=== PATIENT | male | born 1950 | race Caucasian/White ===

== ENCOUNTER 2017-05-20 16:44 | Inpatient (IN) | payer MEDICARE ==
[~2017-05-20] VITALS: Ht 180.3 cm; Wt 81.5 kg
--- NOTE | ~2017-05-20 | DS ---
PATIENT:SHOAIB MARTINEZ :52 MEDICAL RECORD: [id number] DISCHARGE SUMMARY ADMISSION DATE: 05/20/17 DISCHARGE DATE: 05/28/17 DISCHARGE DIAGNOSES: Wubpd-dj-viceyew renal insufficiency, benign prostatic hyperplasia with urinary obstruction, hypertension, osteoarthritis, symptomatic anemia, paroxysmal atrial fibrillation, anemia secondary to renal failure and chronic kidney disease, hypothyroidism, pulmonary hypertension, severe essential hypertension. CONSULTANTS: Dr. Messi Jain, surgery; Dr. Pro Paez, cardiology; and Dr. Bairon Chen for nephrology. PROCEDURES PERFORMED: Echocardiogram, insertion of a right 19-cm with internal jugular HemoSplit catheter. HOSPITAL COURSE: A 67-year-old male with history of hypertension, paroxysmal atrial fibrillation, and chronic renal insufficiency from [place], who is admitted to my services unassigned call with increasing shortness of breath and signs of congestive heart failure. He is admitted with extremely hypertensive pressure as high as 209/96. The consultants above were consulted. The patient had paroxysmal atrial fibrillation responding to verapamil. He was also placed on Epogen 10,000 units 3 times a week for his chronic anemia. The patient underwent a HemoSplit catheter placement for dialysis. 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 With dialysis, he did well and was discharged to have followup in the renal clinic on the following Wednesday. DISCHARGE MEDICATIONS: Clonidine 0.1 mg p.o. q.6 hours for systolic over 180, losartan 100 mg daily, Diltiazem LA 240 mg p.o. daily, hydralazine 30 mg p.o. t.i.d. FOLLOWUP: With Dr. Chen on 05/29/2017 and followup in my clinic in 2 weeks. ACTIVITY: Progress as tolerated. DIET: Renal diet. TRANSINT:[id number] Voice Confirmation ID: [id number] DOCUMENT ID: [id number] MARY GIBBONS MD CC: [id number] DICTATION DATE: 09/03/17 1339 FARM PRODUCTS SHIPPER: 09/03/17 1553 DIS IN 05/28/17 [place] [id number] [place] [id number]
[2017-05-20 18:08] LABS: BASOPHILS 0.2 % (0-2); EOSINOPHILS 4.2 % (0-7); HEMATOCRIT 21.1 % (42.0-54.0); LYMPHOCYTES 18.9 % (15-50); MCH 29.7 pg (26.0-34.0); MCHC 32.7 g/dL (31.0-37.0); MCV 90.9 fL (80.0-100.0); MEAN PLATELET VOLUME 8.7 fL (7.4-10.4); MONOCYTES 5.6 % (2-11); NEUTROPHILS 71.1 % (40-80); PLATELET COUNT 184 10x3/uL (130-400); RBC 2.32 10x6/uL (4.20-6.10); RDW 14.3 % (11.5-14.5); WBC 6.5 10x3/uL (4.8-10.8)
[2017-05-20 18:20] LABS: ALBUMIN 3.3 g/dL (3.4-5.0); ANION GAP 14.8 mmol/L (8-16); BILIRUBIN - TOTAL 0.32 mg/dL (0.2-1.3); CALCIUM 8.5 mg/dL (8.5-10.1); CARBON DIOXIDE 28.8 mmol/L (21.0-32.0); POTASSIUM - SERUM 4.6 mmol/L (3.5-5.1); PROTEIN - SERUM 7.3 g/dL (6.4-8.2)
[2017-05-20 18:28] LABS: TROPONIN-I 0.035 ng/mL (0.000-0.060)
[2017-05-20 18:38] LABS: HEMOGLOBIN 6.9 g/dL (13.5-17.5)
[2017-05-20 20:41] LABS: APPEARANCE CLEAR (CLEAR); COLOR YELLOW (YELLOW); SPECIFIC GRAVITY 1.005 (1.005-1.020)
[2017-05-20 20:42] LABS: BILIRUBIN NEGATIVE (NEGATIVE); GLUCOSE 50 mg/dL (NEGATIVE); KETONE NEGATIVE (NEGATIVE); NITRITE NEGATIVE (NEGATIVE); PROTEIN 2+ mg/dL (NEGATIVE); UROBILINOGEN NORMAL (NORMAL)
[2017-05-20 20:43] LABS: BACTERIA FEW /hpf (NONE SEEN); RED CELLS - URINE OCC /hpf (0-5); WHITE CELLS - URINE 0-5 /hpf (0-5)
[2017-05-20] MEDS ORDERED: CALAN SR240 MG PO (23:51)
[2017-05-21] VITALS (8 sets, daily range): BP systolic 165–192; BP diastolic 82–101; Ht 180.3 cm; Wt 81.5 kg
--- NOTE | 2017-05-21 00:19 | NUR ---
PT RECEIVED AWAKE, ALERT, ORIENTED, IN NO ACUTE DISTRESS AT THIS TIME. FAMILY AT BEDSIDE. I HAVE EXPLAINED THE MEDICATIONS AND PHYSICIANS ORDERS TO PT AND FAMILY, NO QUESTIONS ASKED. PT TO CALL WITH ANY NEEDS. BED LOW, CALL LIGHT IN REACH, SIDE RAILS X 2, HOB 35 DEGREES.
[2017-05-21 00:43] LABS: % SATURATION 19 % (15-55); IRON 56 ug/dl (35-150); TOTAL IRON BIND CAPACITY 294 ug/dl (260-445); UNSAT IRON BIND CAPACITY 238 ug/dl (150-375)
[2017-05-21 00:59] LABS: FERRITIN 275 ng/mL (3-244); LDH 243 U/L (85-227)
--- NOTE | 2017-05-21 02:49 | NUR ---
PTS 1 UNIT OF PRBC'S HAS BEEN STARTED. V/S STABLE AT THIS TIME. PT REMAINS AWAKE, ALERT, ORIENTED, HAS C/O INCREASED SOB WHILE AT REST. O2 SAT WHEN CHECKED IS BETWEEN 89% AND 91%. I HAVE ADDED O2 VIA NC @ 2LPM FOR PTS COMFORT AT THIS TIME. BLOOD CONSENT WAS SIGNED @ 02:13 A.M. EDUCATION ABOUT PRBC'S PROVIDED TO PT, ALONG WITH S/S FOR PT TO REPORT IMMEDIATELY. PT HAS VERBALLY AGREED TO UNDERSTANDING THESE INSTRUCTIONS. WILL CONTINUE TO MONITOR PT CLOSELY.
--- NOTE | 2017-05-21 03:11 | NUR ---
PT IS TOLERATING THE PRBC'S WELL AT THIS TIME. PTS O2 SAT HAS REMAINED @ 97% SINCE STARTING O2 VIA NC @ 2LPM. PTS V/S REMAIN STABLE. I HAVE INCREASED THE TRANSFUSION FROM 120MLS/HR TO 125MLS/HR AND WILL CONTINUE TO MONITOR PT CLOSELY.
--- NOTE | 2017-05-21 05:43 | NUR ---
1 UNIT PRBC'S NOW COMPLETE. PTS V/S REMAIN STABLE, O2 93% ON 2 LPM. PT IS RESTING COMFORTABLY, DENIES ANY NEEDS AT THIS TIME. CONTINUE TO MONITOR CLOSELY.
[2017-05-21 06:42] LABS: BASOPHILS 0.2 % (0-2); EOSINOPHILS 5.1 % (0-7); HEMATOCRIT 23.2 % (42.0-54.0); HEMOGLOBIN 7.8 g/dL (13.5-17.5); IMMATURE GRANULOCYTES 0.2 % (0-5); LYMPHOCYTES 20.4 % (15-50); MCH 30.7 pg (26.0-34.0); MCHC 33.6 g/dL (31.0-37.0); MCV 91.3 fL (80.0-100.0); MEAN PLATELET VOLUME 9.3 fL (7.4-10.4); MONOCYTES 6.3 % (2-11); NEUTROPHILS 67.8 % (40-80); PLATELET COUNT 184 10x3/uL (130-400); RBC 2.54 10x6/uL (4.20-6.10); RDW 14.2 % (11.5-14.5); WBC 6.2 10x3/uL (4.8-10.8)
[2017-05-21 06:54] LABS: CALCIUM 8.6 mg/dL (8.5-10.1); CARBON DIOXIDE 25.8 mmol/L (21.0-32.0); CREATININE - SERUM 11.9 mg/dL (0.6-1.3); POTASSIUM - SERUM 4.8 mmol/L (3.5-5.1)
--- NOTE | 2017-05-21 07:25 | NUR ---
AM ROUNDING DONE WITH PATIENT RESTING EASILY, AROUSES WHEN AWOKEN. DENIES NEEDS AT PRESENT TIME. LEFT HAND SEEN WITH BUMEX INFUSING AT 5 CC/HR, RIGHT FA WITH SALINE LOCK. ON 2L PER NC. ON HEART MONITOR SHOWING SR, HR 78. BILTERAL PITTING EDEMA SEEN TO LOWER LEGS. NEEDING STOOL SAMPLE. WILL CONTINUE TO MONITOR.
--- NOTE | 2017-05-21 08:24 | NUR ---
PATIENT IS UP AD SATINDER, DOES NOT WANT TO WEAR SCD'S.
--- NOTE | 2017-05-21 09:42 | NUR ---
0940-YEH CATH PLACED WITH RETURN OF 300 CC CLEAR YELLOW URINE.
--- NOTE | 2017-05-21 10:39 | NUR ---
URINE SENT TO LAB ORDERED.
[2017-05-21 10:51] LABS: CREATININE - URINE 30.4 mg/dL (30-125); PRO/CRE RATIO URINE 4.7 mg/g; PROTEIN - URINE 143.8 mg/dL (0.0-11.9)
--- NOTE | 2017-05-21 12:00 | HP ---
PATIENT: VAMSI MARTINEZ MEDICAL RECORD: [id number] ACCOUNT: [id number] LOCATION:[address] : [birth year] ADMISSION DATE: 05/20/17 HISTORY AND PHYSICAL EXAMINATION REASON FOR ADMISSION: Extreme shortness of breath and fatigue. HISTORY OF PRESENT ILLNESS: The patient is a 67-year-old male with history of essential hypertension. He states over the last several months, he has been more fatigued. Over the last 2-3 days, he has had increased shortness of breath on exertion. He said the last 2 nights he had to sit up to breathe in bed. He denies cough or sputum production or chest pain. He came to the Emergency Room for these reasons and was found to be very anemic, hemoglobin of 6.9 and a creatinine of 12. He states he had hypertension since age 21, but when became Medicare aid he lost his physician in [place]. He was told once his creatinine was mildly elevated. He had surgery last in June of 2013 and he was told that he had mild creatinine elevation, but nephrology was not consulted. There is no family history of renal disease. PAST MEDICAL HISTORY: Essential hypertension for 40+ years, degenerative joint disease, BPH, history of melanoma in left shoulder. PAST SURGICAL HISTORY: He has had bilateral knee replacements, last January of 2013. He has had 7 hernia repairs, 5 ventral hernia and 2 inguinal hernia repairs. 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 Melanoma removed from his left shoulder. FAMILY HISTORY: Father of CHF and pneumonia. Mother had cancer of the lung. Brother with cancer of the esophagus. ALLERGIES: SULFA. MEDICATIONS: Verapamil 240 b.i.d. SOCIAL HISTORY: The patient is . He is retired. He smoked [id number] history, he quit 40 years ago. He has not had alcohol in 40 years as well. 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 REVIEW OF SYSTEMS: GENERAL: Fatigue, without fever or weight change. HEENT: No recent visual change, sinus congestion, or sore throat. He wears glasses to read. RESPIRATORY: Exertional dyspnea, with no cough or sputum production. CARDIAC: Exertional shortness of breath. No chest pain or claudication. GASTROINTESTINAL: No nausea, vomiting, change in stools, or blood per rectum. GENITOURINARY: He has marked symptoms of urinary obstruction with slow urinary stream. Nocturia 4-5 times nightly. ENDOCRINE: Denies polyuria, polydipsia, heat or cold intolerance. NEUROLOGIC: No history of stroke, TIA, vascular headaches, or seizures. INTEGUMENT: No rash or itching. PSYCHIATRIC: Denies depressed mood. PHYSICAL EXAMINATION: HISTORY AND PHYSICAL [id number] VAMSI MARTINEZ VITAL SIGNS: Temperature 97.7 Fahrenheit orally, pulse 88, respirations 16, blood pressure 187/87, sat 99% on room air. GENERAL: The patient is alert and oriented. HEENT: Eyes are clear. Palpebral conjunctiva is pale. Oropharynx unremarkable. NECK: No bruits or masses. CHEST: Clear, without wheeze or rales. HEART: Regular rate without MGR. PMI appropriate. ABDOMEN: Soft, nontender. Healed surgical scars are noted. GENITOURINARY: Shows marked enlargement of his prostate. The right lobe is somewhat firm and irregular versus the left. No stool in the vault. EXTREMITIES: No CC&E. He has scars over both knees from prior replacement. NEUROLOGICAL: Oriented to person, place, and time. Cranial nerves intact. Gait is normal. ASSESSMENT: 1. Mguvo-xy-iuopbve renal insufficiency. 2. BPH with possible urinary obstruction. 3. Hypertension, uncontrolled. 4. Osteoarthritis. 5. Benign prostatic hypertrophy. 6. History of melanoma. 7. Symptomatic anemia. PLAN: The patient will be transfused. We will place Fernandes catheter and check postvoid residual. Renal has been consulted. TRANSINT:[id number] Voice Confirmation ID: [id number] DOCUMENT ID: [id number] MARY GIBBONS MD at 1200 CC: [id number] DICTATION DATE: 05/21/17802 SALES EXEC: 05/21/17914 [facility] [place] [id number] [place] [address]
--- NOTE | 2017-05-21 12:06 | NUR ---
DENIES NEEDS AT PRESENT TIME. HAS BEEN RESTING WELL SINCE YEH CATH WAS PLACED. WILL CONTINUE TO MONITOR.
--- NOTE | 2017-05-21 12:25 | NUR ---
IV CONVERTED TO SALINE LOCK ORDERED.
--- NOTE | 2017-05-21 13:59 | NUR ---
PATIENT TO COMPLAIN OF "SLIGHT CHEST TIGHTNESS", NO CHEST PAIN. I CHECKED WITH TELEMENTRY AND THERE HAS BEEN NO CHANGES IN HEART MONITOR. I ASKED THAT HE CALL ME WITH ANY CHEST PAIN.
--- NOTE | 2017-05-21 16:28 | NUR ---
FAMILY MEMBERS AT BEDSIDE, DENIES ANY NEEDS AT THIS TIME. EDEMA TO BILATERAL LEGS ARE BETTER THAN AT INITAL SHIFT ASSESSMENT. WILL CONTINUE TO FOLLOW.
--- NOTE | 2017-05-21 18:46 | NUR ---
STOOL SENT TO LAB ORDERED.
--- NOTE | 2017-05-21 19:32 | NUR ---
BLOOD PRESSURE 165/82. APRESOLINE 10 MG GIVEN SLOW IVP
--- NOTE | 2017-05-21 23:25 | NUR ---
BLOOD PRESSURE IS 192/92. APRESOLINE 10 MG GIVEN ORDERED.
--- NOTE | 2017-05-21 23:45 | NUR ---
REPORT RECIEVED AND RESUMED CARE OF PATIENT. CHECKED IN ON HIM AND HE WAS SITTING UP IN BED WATCHING TV. INTRIDUCED SELF AND DENIES PAIN/NEEDS ATT. BED LOW AND LOCKED, CALL LIGHT IN REACH. WILL CPOC.
[2017-05-22] VITALS: BP 166/67
[2017-05-22 04:00] VITALS: BP 177/79
[2017-05-22 05:59] LABS: BASOPHILS 0.5 % (0-2); EOSINOPHILS 10.9 % (0-7); HEMATOCRIT 23.9 % (42.0-54.0); IMMATURE GRANULOCYTES 0.2 % (0-5); LYMPHOCYTES 23.6 % (15-50); MCH 30.8 pg (26.0-34.0); MCHC 33.5 g/dL (31.0-37.0); MCV 91.9 fL (80.0-100.0); MONOCYTES 7.9 % (2-11); NEUTROPHILS 56.9 % (40-80); PLATELET COUNT 215 10x3/uL (130-400); RDW 14.4 % (11.5-14.5); WBC 6.5 10x3/uL (4.8-10.8)
[2017-05-22 06:12] LABS: ANION GAP 17.4 mmol/L (8-16); CALCIUM 8.4 mg/dL (8.5-10.1); CARBON DIOXIDE 23.6 mmol/L (21.0-32.0); CREATININE - SERUM 11.9 mg/dL (0.6-1.3); PHOSPHOROUS 8.3 mg/dL (2.5-4.9); URIC ACID 8.8 mg/dL (2.6-7.2)
[2017-05-22 07:07] LABS: ERYTHROCYTE SEDIMENTATION RATE 75 mm/hr (0-20)
[2017-05-22 07:21] LABS: FOLATE (FOLIC ACID) - SERUM 6.6 ng/mL (>3.0)
--- NOTE | 2017-05-22 07:30 | NUR ---
AM ROUNDS- PT IN BED, WITH EYES CLOSED, AROUSES EASILY TO VOICE. RESP EVEN AND UNLABORED. RT FA IV SL. LT HAND IV SL. BED LOW AND WHEELS LOCKED, BEDSIDE RAILS X2, CALL LIGHT IN REACH, PT DENIES ANY NEEDS AT THIS TIME. NAD NOTED, WILL CONTINUE TO MONITOR.
--- NOTE | 2017-05-22 08:30 | NUR ---
ADMINISTERED MORNING MEDS. PT IN BED, WATCHING TV. DENIES ANY NEEDS AT THIS TIME. CALL LIGHT IN REACH, WILL CONTINUE TO MONITOR.
[2017-05-22 08:39] VITALS: BP 173/86
[2017-05-22 12:00] VITALS: BP 157/95
--- NOTE | 2017-05-22 12:00 | NUR ---
NOTIFIED DR. PARK THAT PT WENT INTO CAF WITH RATE OF 73. DR. PARK STATED TO CONSULT CARDIOLOGY AND NOTIFY ATTENDING DOCTOR. 1205- SPOKE WITH DR. MULLER AND NOTIFIED HIM THAT PT WENT INTO CAF AND THAT DR. PARK STATED TO CONSULT CARDIOLOGY. WILL PUT IN CONSULT.
--- NOTE | 2017-05-22 12:47 | NUR ---
1230- 24HR URINE COLLECTION STARTED. CONTAINER PLACED IN ICE, ALSO PLACED YEH BAG IN ICE. PT IN BED, DENIES ANY NEEDS AT THIS TIME. CALL LIGHT IN REACH, NAD NOTED, WILL CONTINUE TO MONITOR.
[2017-05-22 12:54] LABS: % SATURATION 22 % (15-55); IRON 57 ug/dl (35-150); TOTAL IRON BIND CAPACITY 259 ug/dl (260-445); UNSAT IRON BIND CAPACITY 202 ug/dl (150-375)
[2017-05-22 16:00] VITALS: BP 119/69
--- NOTE | 2017-05-22 17:27 | NUR ---
PT GOING FROM SB UPPER 40S TO LOWER 50S. AT THIS TIME PT IS CAF 76. ROLY ERNST NOTIFIED ABOUT CHANGES NO NEW ORDERS RECEIVED AT THIS TIME.
--- NOTE | 2017-05-22 17:43 | NUR ---
PT C/O SOB, PT STATED THAT HE FEELS LIKE HE HAS TO TAKE EXTRA DEEP BREATHS. HE DENIES ANY CHEST PAIN. O2 AT 96% ON 2L. NEW ICE PLACE ON BASIN AND PLACED COLLECTION CONTAINER AND YEH BAG IN BASIN. PT DENIES ANY NEEDS AT THIS TIME. FAMILY AT BEDSIDE, CALL LIGHT IN REACH, NAD NOTED, WILL CONTINUE TO MONITOR.
[2017-05-22 20:00] VITALS: BP 121/78
--- NOTE | 2017-05-22 20:04 | NUR ---
RECEIVED REPORT, WILL ASSUME CARE OF PT, DENIES ANY NEEDS, BED IS LOW, SRX2, CALL LIGHT IN REACH, WILL CONTINUE PLAN OF CARE, AT BEDSIDE
--- NOTE | 2017-05-22 21:11 | NUR ---
[facility]- BP-121/78, P-48, WILL CONTINUE TO MONITOR
[2017-05-23] VITALS: BP 135/79
[2017-05-23 04:00] VITALS: BP 157/84
--- NOTE | 2017-05-23 04:53 | NUR ---
ASSESSMENT COMPLETE, SEE FLOWSHEET, PT SLEEPING, BED IS LOW, SRX2, CALL LIGHT IN REACH, WILL CONTINUE PLAN OF CARE
[2017-05-23 06:07] LABS: THYROID STIMULATING HORMONE 10.99 uIU/mL (0.36-3.74)
--- NOTE | 2017-05-23 07:15 | NUR ---
REPORT RECEIVED. PT RESTING QUIETLY, RR EVEN AND UNLABORED. PT REPORTS FEELING "MUCH BETTER" THIS MORNING. WILL CTM.
[2017-05-23 08:00] VITALS: BP 164/83
[2017-05-23 10:22] LABS: T4 THYROXIN - FREE 1.07 ng/dL (0.76-1.46)
[2017-05-23 10:23] LABS: ANION GAP 21.5 mmol/L (8-16); CALCIUM 8.5 mg/dL (8.5-10.1); CARBON DIOXIDE 21.4 mmol/L (21.0-32.0); CREATININE - SERUM 12.3 mg/dL (0.6-1.3); POTASSIUM - SERUM 4.9 mmol/L (3.5-5.1)
[2017-05-23 10:35] LABS: INR 1.03 (0.85-1.17); PROTIME 13.4 SECONDS (11.6-15.0)
[2017-05-23 12:00] VITALS: BP 157/79
--- NOTE | 2017-05-23 14:15 | NUR ---
1ST PRBC TRANSFUSION INITIATED. PRE TRANSFUSION VITALS STABLE, RR EVEN AND UNLABORED. STARTED PRBCS AT 100MLS/HR, WILL INCREASE 15 MINUTES AFTER INITIATION TO ENSURE NO TRANSFUSION REACTION. PT ON FREQUENT VS, WILL STAY WITH PT UNTIL FIRST 15 MINUTES IS COMPLETE. PT DENIES NEEDS. EDUCATED PT ON S/S TO REPORT OF TRANSFUSION REACTION. FAMILY AT [facility], BOTH PT AND FAMILY VERBALIZED UNDERSTANDING. WILL CTM.
[2017-05-23 14:23] LABS: CREATININE - URINE 41.4 mg/dL (30-125); PROTEIN - URINE 119.8 mg/dL (0.0-11.9)
--- NOTE | 2017-05-23 14:30 | NUR ---
15 MINUTES POST TRANSFUSION, VSS, RR EVEN AND UNLABORED. PT DENIES ANY DISCOMFORT. BP HAS ELEVATED TO 172/78. GAVE PRN HYDRALIZINE, WILL CTM PTS VS.
[2017-05-23 14:33] LABS: CREATININE - SERUM 12.3 mg/dL (0.6-1.3)
[2017-05-23 16:00] VITALS: BP 171/81
--- NOTE | 2017-05-23 16:30 | NUR ---
FIRST UNIT OF BLOOD COMPLETE. RR EVEN AND UNLABORED. VSS, BLOOD PRESSURE STILL ELEVATED TO 176/86. PT REPORTS SLIGHT SOB, BUT REPORTS FEELING "FINE." PAGED ROLY ERNST RENAL POLICE STENOGRAPHER. WILL CTM.
--- NOTE | 2017-05-23 16:42 | NUR ---
SPOKE TO ROLY ERNST REGARDING PT CONDTION. GAVE TELEPHONE ORDER FOR CLONIDINE 0.2MG ONE TIME. GAVE ORDER TO HOLD 2ND UNIT OF BLOOD UNTIL BP DROPS BELOW 160 SYSTOLIC. TOLD ME TO NOTIFY HER IF PTS PRESSURE DOES NOT DECREASE. WILL GIVE CLONIDINE AND CTM.
--- NOTE | 2017-05-23 18:30 | NUR ---
PT RESTING QUIETLY, RR EVEN AND UNLABORED. PT DENIES NEEDS AT THIS TIME. ROLY ERNST RETURNED PAGE, GAVE TELEPHONE ORDER FOR ONE TIME IV LASIX 40MG. GAVE ORDER TO START 2ND TRANSFUSION. WILL GIVE REPORT ON PT CONDTION FOR THE DAY.
--- NOTE | 2017-05-23 19:30 | NUR ---
PRBC TRANSFUSION STARTED AFTER VERIFIED PT IDENTIFICATION AT THE BEDSIDE. CHECKED WITH NURSES X2, WILL MONITOR PER PROTOCOL FOR S/S OF ADVERSE REACTIONS.
--- NOTE | 2017-05-23 19:37 | NUR ---
RECEIVED REPORT, WILL ASSUME CARE OF PT, VENUS MONIQUE STARTED 2ND UNIT OF PRBC, PT DENIES ANY NEEDS, CALL LIGHT IN REACH, WILL CONTINUE PLAN OF CARE
[2017-05-23 20:00] VITALS: BP 165/81
[2017-05-24] VITALS (12 sets, daily range): BP systolic 144–192; BP diastolic 65–92
--- NOTE | 2017-05-24 01:36 | NUR ---
BP-181/80 GAVE PRN HYDRALAZINE ORDER
--- NOTE | 2017-05-24 05:13 | NUR ---
ASSESSMENT COMPLETE, PT IS GOING TO WIPE DOWN WITH HIBICLENS WIPES WHEN GET HERE,PT DIDNT SLEEP WELL LASTNIGHT, BUT STATES HE SLEPT ALOT YESTERDAY, DENIES ANY NEEDS AT THIS TIME, CALL LIGHT IN REACH
[2017-05-24 06:12] LABS: BASOPHILS 0.4 % (0-2); EOSINOPHILS 9.8 % (0-7); IMMATURE GRANULOCYTES 0.1 % (0-5); LYMPHOCYTES 19.8 % (15-50); MCH 30.4 pg (26.0-34.0); MCHC 33.4 g/dL (31.0-37.0); MCV 90.8 fL (80.0-100.0); MEAN PLATELET VOLUME 10.2 fL (7.4-10.4); MONOCYTES 6.6 % (2-11); NEUTROPHILS 63.3 % (40-80); PLATELET COUNT 225 10x3/uL (130-400); RDW 14.5 % (11.5-14.5); WBC 7.3 10x3/uL (4.8-10.8)
[2017-05-24 06:26] LABS: INR 1.03 (0.85-1.17); PROTIME 13.3 SECONDS (11.6-15.0)
[2017-05-24 06:33] LABS: HEMATOCRIT 29.6 % (42.0-54.0); HEMOGLOBIN 9.9 g/dL (13.5-17.5); RBC 3.26 10x6/uL (4.20-6.10)
[2017-05-24 06:49] LABS: ANION GAP 24.2 mmol/L (8-16); CALCIUM 8.6 mg/dL (8.5-10.1); CARBON DIOXIDE 18.8 mmol/L (21.0-32.0); CREATININE - SERUM 12.1 mg/dL (0.6-1.3)
[2017-05-24 06:52] LABS: PHOSPHOROUS 9.1 mg/dL (2.5-4.9)
--- NOTE | 2017-05-24 07:18 | NUR ---
DR. PARK ON UNIT. INFORMED DR. PARK THAT PER REPORT FROM EBONIE BREAST PULLER NURSE THAT THERE IS NURSING MESSAGE THAT PT IS TO HAVE RENAL BIOPSY TODAY BUT THERE ARE NO ORDERS. DR. PARK STATES THAT HE IS WAITING ON SPECIALS. DR. PARK STATES TO CONSULT CARDIOLOGY FOR A-FIB THAT PT HAD YESTERDAY. WILL PUT ORDERS IN GIVEN.
--- NOTE | 2017-05-24 07:50 | NUR ---
0700- AM ROUNDING- RECEIVED REPORT FROM INSTRUCTIONAL TECHNOLOGY FACILITATOR NURSE EBONIE. PT IS CURRENTLY SITTING UP IN BED WITH EYES OPEN RESTING. IS AT BEDSIDE. NPO CURRENTLY FOR POSSIBLE RENAL BIOPSY TODAY. DR. PARK IS ON UNIT. ON 02 AT 2L VIA NC. ON MONITOR SHOWING SR, HR 74. IV SEEN TO RIGHT FOREARM THAT IS CURRENTLY SALINE LOCKED. SECOND IV SEEN TO LEFT HAND THAT IS CURRENLTY SALINE LOCKED. YEH CATHETER SEEN. PER REPORT PT REFUSES SCDS. NO NEED AT THIS CURRENT TIME. WILL CONTINUE TO MONITOR AND CONTINUE WITH PLAN OF CARE.
--- NOTE | 2017-05-24 08:47 | NUR ---
TO TO SPECIALS VIA BED. PT SIGNED CONSENTS FOR PROCEDURE. PT HAS BEEN NPO THIS AM.
[2017-05-24 09:08] LABS: ANA REFLEX - DIRECT Negative (Negative)
--- NOTE | 2017-05-24 09:48 | NUR ---
PT BACK FROM PROCEDURE VIA BED. PT IS AWAKE AND ALERT. DRESSING SEEN TO RIGHT MID BACK AREA THAT IS CLEAN, DRY, AND INTACT. WILL TAKE VITALS AND CONTINUE TO MONITOR.
--- NOTE | 2017-05-24 10:49 | NUR ---
LETHA DUNHAM APN REGARDING PTS BLOOD PRESSURE (184/81). WILL AWAIT CALLBACK AND CONTINUE TO MONITOR.
--- NOTE | 2017-05-24 10:52 | NUR ---
RECEIVED CALLBACK FROM KARY DUNHAM. INFORMED KARY DUNHAM OF PTS BLOOD PRESSURES BEING OVER 180 SYSTOLIC. KARY DUNHAM GAVE NEW ORDERS.
--- NOTE | 2017-05-24 16:42 | NUR ---
PT STATES HE IS IN 1/10 PAIN AFTER HAVING TYLENOL RECENTLY. PTS DRESSING TO RIGHT MID BACK AREA IS CLEAN, DRY, AND INTACT WITH NO BLEEDING SEEN. PT DENIES ANY NEED AT THIS TIME. WILL CONTINUE TO MONITOR.
--- NOTE | 2017-05-24 18:35 | NUR ---
1800- PT IS CURRENTLY SITTING UP IN BED WITH EYES OPEN RESTING. FAMILY MEMBERS ARE AT BEDSIDE. NO NEED AT THIS CURRENT TIME. WILL CONTINUE TO MONITOR AND CONTINUE WITH PLAN OF CARE.
--- NOTE | 2017-05-24 21:19 | NUR ---
HS MEDS GIVEN WITH FRESH ICE WATER, PT DENIES PAIN OR NEEDS, BED LOW, CL IN REACH.
--- NOTE | 2017-05-25 00:29 | NUR ---
IN BE RESTING WITH EYES CLOSED, RESPERATIONS EVEN, NO S/S DISTRESS NOTED.
[2017-05-25 01:44] VITALS: BP 188/82
[2017-05-25 04:40] VITALS: BP 187/77
[2017-05-25 06:00] LABS: BASOPHILS 0.3 % (0-2); EOSINOPHILS 8.4 % (0-7); HEMOGLOBIN 9.6 g/dL (13.5-17.5); IMMATURE GRANULOCYTES 0.1 % (0-5); LYMPHOCYTES 20.3 % (15-50); MCH 30.4 pg (26.0-34.0); MCHC 33.1 g/dL (31.0-37.0); MCV 91.8 fL (80.0-100.0); MEAN PLATELET VOLUME 9.9 fL (7.4-10.4); MONOCYTES 10.6 % (2-11); NEUTROPHILS 60.3 % (40-80); PLATELET COUNT 224 10x3/uL (130-400); RBC 3.16 10x6/uL (4.20-6.10); RDW 14.7 % (11.5-14.5)
[2017-05-25 06:26] LABS: ANION GAP 24.5 mmol/L (8-16); CALCIUM 8.7 mg/dL (8.5-10.1); CARBON DIOXIDE 18.2 mmol/L (21.0-32.0); CREATININE - SERUM 12.5 mg/dL (0.6-1.3); MAGNESIUM - SERUM 2.1 mg/dL (1.8-2.4); POTASSIUM - SERUM 4.7 mmol/L (3.5-5.1)
[2017-05-25 06:28] LABS: PHOSPHOROUS 9.6 mg/dL (2.5-4.9)
[2017-05-25 07:13] VITALS: BP 213/94
--- NOTE | 2017-05-25 07:23 | NUR ---
AM ROUNDING- RECEIVED REPORT FROM POT PUNCHER NURSE VARSHA. PT IS CURRENTLY SITTING UP IN BED WITH EYES OPEN RESTING. PT STATES THIS IS THE FIRST DAY HE HAS FELT BETTER SINCE BEING HERE. PT IS ON 02 AT 2L VIA NC. ON MONITOR SHOWING SR, HR 66. IV SEEN TO LEFT HAND THAT IS CURRENTLY SALINE LOCKED. YEH CATHETER SEEN. NO NEED AT THIS CURRENT TIME. WILL CONTINUE TO MONITOR AND CONTINUE WITH PLAN OF CARE.
[2017-05-25 07:24] LABS: UPE RAND - ALBUMIN 59.3 % (()); UPE RAND - ALPHA 2 GLOBULIN 8.3 % (()); UPE RAND - BETA GLOBULIN 14.4 % (())
[2017-05-25 08:19] LABS: SPE - ALBUMIN 3.1 g/dL (2.9-4.4); SPE - ALPHA-1 GLOBULIN 0.2 g/dL (0.0-0.4); SPE - ALPHA-2 GLOBULIN 0.8 g/dL (0.4-1.0); SPE - M-SPIKE Not Observed g/dL (Not Observed); SPE - TOTAL PROTEIN 6.1 g/dL (6.0-8.5)
--- NOTE | 2017-05-25 09:04 | NUR ---
YEH CATHETER D/C ORDERED.
--- NOTE | 2017-05-25 09:42 | NUR ---
RECEIVED CALLBACK FROM ELLA PHOENIX NP WITH NEW ORDERS RECEIVED.
--- NOTE | 2017-05-25 10:40 | NUR ---
EKG DONE AND PLACED IN CHART.
[2017-05-25 11:16] LABS: HEPATITIS C ANTIBODY <0.1 (0.0-0.9)
--- NOTE | 2017-05-25 11:50 | NUR ---
PT GIVEN PRE-OP MEDICATIONS DIRECTED WITH SIP OF WATER. IV FLUIDS HUNG AND TUBING PRIMED.
--- NOTE | 2017-05-25 11:59 | NUR ---
PT TO PROCEDURE VIA BED.
--- NOTE | 2017-05-25 12:24 | NUR ---
NO ORDERS RECEIVED FROM DR. DOMINGUEZ FOR PTS PROCEDURE. OR CAME TO GET PT. THIS NURSE WAS NOT CALLED NOR INFORMED UNTIL OR STAFF GOT TO UNIT TO PRE-OP PT. ANTONIETA HALE, HEALTH PROGRAM MANAGER INFORMED REGARDING SITUATION.
[2017-05-25 14:48] VITALS: BP 175/80
--- NOTE | 2017-05-25 14:50 | NUR ---
RECEIVED PT VIA BED FROM OR. PT IS ALERT AND ORIENTED. ON 02 AT 2L VIA NC. RIGHT CHEST HEMOSPLIT SEEN. VITAL SIGNS ARE BEING TAKEN PER POLICY. WILL RESUME MEDICATIONS AND DIET PER DR. DOMINGUEZ. WILL CONTINUE TO MONITOR.
--- NOTE | 2017-05-25 16:42 | CN ---
PATIENT NAME:VAMSI MARTINEZ MEDICAL RECORD: [id number] : 52 LOCATION:[address] ADMIT DATE: 05/20/17 ACCOUNT: [id number] CONSULTING PHYSICIAN: CHIVO CARL MD REFERRING PHYSICIAN: MARY GIBBONS MD DATE OF CONSULTATION: 05/23/2017 CARDIOLOGY CONSULTATION DATE OF SERVICE: 05/23/2017 DIAGNOSES: 1. Paroxysmal atrial fibrillation. 2. End-stage renal failure. 3. Anemia secondary to renal failure and chronic kidney disease. 4. Hypertension. 5. Hypothyroidism. HISTORY OF PRESENT ILLNESS: This is a gentleman who is admitted with anemia and renal failure who had one episode of atrial fibrillation. He was restarted on verapamil that he has been on in the past. He has maintained sinus rhythm since and he has no chest pain, no chest discomfort, no other cardiac problems. PHYSICAL EXAMINATION: GENERAL APPEARANCE: Well-nourished, well-developed, appears stated age. Level of distress, comfortable. PSYCHIATRIC: Mental status, alert, normal affect. Orientation, oriented to time, place and person. EYES: Lids and conjunctiva, noninjected. No discharge, no pallor. ENT: Lips, teeth, gums, normal dentition. Oropharynx, no cyanosis, no pallor. NECK: Carotid arteries, bilateral normal upstroke, no bruits, no thrills. JUGULAR VEINS: No jugular venous pressure or distention. CERVICAL LYMPH NODES: Nontender, nonenlarged. THYROID: Not enlarged. Nontender. No nodules. LUNGS: Respiratory effort, unlabored. CHEST: Normal curvature. No thoracic deformity. No chest wall tenderness. Percussion, resonant. Auscultation, clear. No wheezes, no rales, no rhonchi. CARDIOVASCULAR: Precordial exam, nondisplaced. No heaves or pericardial thrills. Rate and rhythm, regular. Heart sounds, normal S1, normal S2. No S3, no gallop, no rub. Systolic murmur, not heard. Diastolic murmur, not heard. EXTREMITIES: No cyanosis, no edema. Peripheral pulses, full and equal in all extremities, except as noted. No bruits appreciated. ABDOMEN: Soft, nondistended. Normal aorta. No bruit. Nontender. No masses. Liver, nontender, no hepatomegaly. Spleen, nontender, no splenomegaly. MUSCULOSKELETAL: No joint tenderness. No joint swelling. No erythema. NEUROLOGICAL: Normal gait, normal strength, normal tone. SKIN: Warm and dry. OVERALL IMPRESSION: Paroxysmal atrial fibrillation, responded to verapamil. We will continue verapamil unless he any further episodes of atrial fibrillation. We will get an echocardiogram. No other cardiac workup or treatment is necessary at this time. TRANSINT:[id number] Voice Confirmation ID: [id number] DOCUMENT ID: [id number] CONSULT REPORT [id number] VAMSI MARTINEZ, CHIVO RUDOLPH at 1642 CC: [id number] DICTATION DATE: 05/23/17 1102 OPTOMECHANICAL ENGINEER: 05/23/17 1319 ADM IN [facility] [address] [place] [address]
--- NOTE | 2017-05-25 16:51 | NUR ---
Patient Name: VAMSI MARTINEZ Admission Status: ER Accout number: [id number] Admission Date: 05-20-2017 : 1950 Admission Diagnosis:SHORTNESS OF BREATH Attending: MARY GIBBONS Current LOS: 5 Anticipated DC Date: 05-26-2017 Planned Disposition: Home Primary Insurance: [facility] Discharge Planning Comments: * How many steps to enter\exit or inside your home? 5 0 * PCP NONE 0 * Pharmacy [facility] [address] 0 * Preadmission Environment Home with Family 0 * ADLs Independent 0 * Equipment None 0 * Other Equipment NO MEDICAL EQUIPMENT PROVIDER PREFERENCE 0 * List name and contact numbers for known caregivers / representatives who currently or will assist patient after discharge: BIANCA MARTINEZ, SPOUSE, 0 * Community resources currently utilized None 0 * Please name any agencies selected above. NONE 0 * Additional services required to return to the preadmission environment? No 0 * Can the patient safely return to the preadmission environment? Yes 0 * Has this patient been hospitalized within the prior 30 days at any hospital? No 0 CM RECEIVED ORDER FOR OUTPATIENT HEMODIALYSIS CLINIC ARRANGEMENT. RN BILL GARCIA CALLED EBONIE OF [facility] WHO WILL BEGIN THE PROCESS. CM MET WITH PT'S SPOUSE IN ROOM TO DISCUSS DISCHARGE PLANNING AND NEEDS. PT NOT IN ROOM, HE WAS IN A PROCEEDURE. SPOUSE REPORTS PT LIVING AT HOME INDEPENDENTLY WITH SPOUSE. PT HAS NO MEDICAL EQUIPMENT AND NO OUTSIDE SERVICES ASSISTING IN THE HOME. CM DISCUSSED AVAILABILITY OF HOME HEALTH, REHAB SERVICES AND MEDICAL EQUIPMENT. PT'S SPOUSE DENIES DISCHARGE NEEDS, REPORTS SHE WILL PICK PT UP FOR DISCHARGE HOME. PT'S SPOUSE UNDERSTANDS OUTPATIENT CLINIC NEED, THEY LIVE IN [place]. CM NOTIFIED PT'S SPOUSE THAT [facility] COORDINATOR MAY CONTACT SHE OR SPOUSE WITH WELCOME INFORMATION AND CLINIC APPOINTMENT INFORMATION. CM WAITING ARRANGEMENT OF OUTPATIENT DIALYSIS CLINIC. Benefits Representative: Da De La Fuente
[2017-05-25 17:11] LABS: ANCA - ANTIMYELOPEROXIDASE <9.0 U/mL (0.0-9.0); ANCA - ANTIPROTEINASE 3 <3.5 U/mL (0.0-3.5); ANCA - ATYPICAL <1:20 titer (Neg:<1:20); ANCA - CYTOPLASMIC <1:20 titer (Neg:<1:20); ANCA - PERINUCLEAR <1:20 titer (Neg:<1:20)
--- NOTE | 2017-05-25 17:51 | NUR ---
PT IS CURRENTLY SITTING UP IN BED WITH EYES OPEN RESTING. FAMILY MEMBERS ARE AT BEDSIDE. PT IS ASKING ABOUT HAVING STITCHES TAKEN OUT OF LLE (PT STATES HE HAD BIOPSY AND THEY HAD STITCHES PLACED). PT STATES HE TALKED TO DOCTOR THAT HE HAD APPT WITH TODAY AND DR. BONILLA FOR "US" TO TAKE OUT STITCHES. THIS NURSE RELAYED INFORMATION TO REFUGIO, CHARGE NURSE. KAYDEN HUFF STATES TO HAVE PT FOLLOW UP WITH PCP HERE TOMORROW TO SEE ABOUT LLE AND STITCH REMOVAL. WILL PASS THIS INFORMATION ALONG TO PT. WILL PASS THIS ALONG IN REPORT.
--- NOTE | 2017-05-25 19:06 | NUR ---
PT IN BED WATCHING TELEVISION. DENIES NEEDS AT THIS TIME. WILL CONTINUE TO MONITOR.
[2017-05-25 20:00] VITALS: BP 198/77
--- NOTE | 2017-05-25 23:30 | NUR ---
PT IN BED RESTING QUIETLY. BREATHING EVEN AND UNLABORED. BED IN LOW POSITION, CALL LIGHT WITHIN REACH. WILL CPOC.
[2017-05-26] VITALS (10 sets, daily range): BP systolic 159–228; BP diastolic 74–97
[2017-05-26 05:39] LABS: BASOPHILS 0.4 % (0-2); HEMATOCRIT 31.3 % (42.0-54.0); HEMOGLOBIN 10.2 g/dL (13.5-17.5); IMMATURE GRANULOCYTES 0.4 % (0-5); LYMPHOCYTES 16.8 % (15-50); MCH 30.3 pg (26.0-34.0); MCHC 32.6 g/dL (31.0-37.0); MCV 92.9 fL (80.0-100.0); MEAN PLATELET VOLUME 10.2 fL (7.4-10.4); NEUTROPHILS 69.4 % (40-80); PLATELET COUNT 260 10x3/uL (130-400); RBC 3.37 10x6/uL (4.20-6.10); WBC 8.3 10x3/uL (4.8-10.8)
[2017-05-26 06:08] LABS: CALCIUM 8.6 mg/dL (8.5-10.1); CARBON DIOXIDE 17.9 mmol/L (21.0-32.0); CREATININE - SERUM 12.2 mg/dL (0.6-1.3); POTASSIUM - SERUM 4.9 mmol/L (3.5-5.1)
--- NOTE | 2017-05-26 07:20 | NUR ---
YREPORT RECEIVED. PT RESTING QUILETY, RR EVEN AND UNLABORED. PT REQUESTING PRN TYLENOL FOR 4/10 PAIN IN HEAD. WILL GIVE, ASSESSMENT PERFORMED. DR. GIBBONS AT BEDSIDE REMOVING SUTURES IN LEFT LOWER EX PER PT REQUEST. WILL CTM.
--- NOTE | 2017-05-26 08:30 | NUR ---
PTS BP IS ELEVATED TO 200/95 MANNUALLY. WILL GIVE PRN HYDRALIZINE AND RECHECK BP IN 15 TO 30 MINUTES. PT HAS MILD BOWDEN. WILL CTM.
--- NOTE | 2017-05-26 08:49 | NUR ---
PTS BP IS STILL ELEVATED TO 200/78. PT REPORTS DECREASED BOWDEN. WILL GIVE OTHER PRN BP MED AND CTM.
--- NOTE | 2017-05-26 09:20 | NUR ---
PTS BP HAS DECREASED TO 187/83. WILL GIVE ANOTHER PRN BP MED AND CTM.
--- NOTE | 2017-05-26 09:30 | NUR ---
SPOKE TO DIALYSIS NURSE REGARDING PTS DIALYSIS TODAY. ASKED WHAT TIME HE WOULD BE GOING TO DETERMINE IF I NEED TO GIVE ADDITIONAL PRN BP MED. THEY REPORTED THAT THEY DID NOT KNOW WHAT TIME THEY WERE GOING TO TAKE PT TO DIALYSIS TODAY. WILL GIVE PRN BP MED.
--- NOTE | 2017-05-26 10:05 | NUR ---
CALLED PHARMACY ABOUT LABETOLOL NOT BEING AVAILABLE IN [facility]. REPORTED THAT THEY WILL BRING IT UP. WILL GIVE WHEN AVAILABLE.
[2017-05-26 10:17] LABS: ANTI-GLOMERULAR BASMENT MEMBRN 7 units (0-20)
--- NOTE | 2017-05-26 11:30 | NUR ---
PT TRANSFERRED TO DIALYSIS. WILL CTM UPON RETURN FROM DIALYSIS.
--- NOTE | 2017-05-26 14:45 | NUR ---
PT BACK FROM DIALYSIS. UP TO BATHROOM HAVING BM. PT REPORTS BOWDEN AT 05/04. REQUESTING SOMETHING STRONGER THAN TYLENOL. WILL CALL PHYSICIAN ABOUT PT REQUEST. BP IN DIALYSIS WAS ELEVATED. WILL RECHECK BP NOW AND DETERMINE IF PRN BP MED IS NEEDED. RR EVEN AND UNLABORED. WILL CTM.
--- NOTE | 2017-05-26 15:00 | NUR ---
PT IS VERY NAUSEATED UPON RETURN FROM DAILYSIS. WILL GIVE ZOFRAN AND CTM.
--- NOTE | 2017-05-26 15:03 | NUR ---
PTS BP IS 204/80 MANUALLY. WILL GIVE PRN BP MEDS. WILL RECHECK BP IN 15-30 MIN.
--- NOTE | 2017-05-26 15:20 | NUR ---
SPOKE TO DR. GIBBONS REGARDING PTS BOWDEN AND BP BEING ELEVATED. GAVE TELEPHONE ORDER FOR FIORICET 1 TAB Q4. WILL GIVE AND CTM. GAVE NO NEW ORDERS REGARDING BP. WILL CONTINUE PRN BP MEDS.
--- NOTE | 2017-05-26 15:40 | NUR ---
PTS BP IS STILL ELEVATED TO 189/74. WILL GIVE PRN BP MED AND CTM.
--- NOTE | 2017-05-26 16:17 | NUR ---
PT RESTING QUIETLY, FAMILY AT BEDSIDE. RR EVEN AND UNLABORED. BP IS NOW 159/74. PT REPORTS FEELING "A LITTLE BETTER." WILL CTM.
--- NOTE | 2017-05-26 18:30 | NUR ---
PT ASLEEP. RR EVEN AND UNLABORED. PT DENIES NEEDS AT THIS TIME. DID NOT CHANGE HEMOSPLIT DRESSING TODAY, WILL PASS ALONG IN REPORT THAT DRESSING NEEDS TO BE CHANGED. PT HAS HAD NO MORE EPISODES OF VOMITING SINCE [place] TODAY. FAMILY AT BEDSIDE. WILL GIVE REPORT ON PT CONDTION FOR THE DAY.
--- NOTE | 2017-05-26 19:25 | NUR ---
PT IN BED WITH EYES OPEN COMPLAINS OF HEADACHE. PRN FLORICET GIVEN PER ORDERS. NO OTHER CONCERNS NOTED AT THIS TIME. WILL CONTINUE TO OBSERVE. CALL LIGHT IN REACH.
--- NOTE | 2017-05-26 23:10 | NUR ---
PT IN BED WITH EYES OPEN. CONTINUES TO COMPLAIN OF HEADACHE WITH PRN TYLENOL AND ZOFRAN GIVEN PER ORDERS. MANUAL B/P OBTAINED WITH B/P178/78 AND PULSE OF 74 WITH CALAN GIVEN. NO OTHER CONCERNS NOTED. CALL LIGHT IN REACH. WILL CONTINUE TO OBSERVE.
--- NOTE | 2017-05-27 04:32 | NUR ---
PT IN BED WITH EYES CLOSED AND CHEST RISING. NO S/S OF DISTRESS NOTED. CALL LIGHT IN REACH. WILL CONTINUE TO OBSERVE.
[2017-05-27 05:38] LABS: BASOPHILS 0.3 % (0-2); EOSINOPHILS 4.1 % (0-7); HEMATOCRIT 31.7 % (42.0-54.0); HEMOGLOBIN 10.3 g/dL (13.5-17.5); IMMATURE GRANULOCYTES 0.2 % (0-5); LYMPHOCYTES 19.6 % (15-50); MCH 30.1 pg (26.0-34.0); MCHC 32.5 g/dL (31.0-37.0); MCV 92.7 fL (80.0-100.0); MONOCYTES 9.8 % (2-11); PLATELET COUNT 238 10x3/uL (130-400); RBC 3.42 10x6/uL (4.20-6.10); RDW 14.9 % (11.5-14.5)
[2017-05-27 05:39] LABS: WBC 6.1 10x3/uL (4.8-10.8)
[2017-05-27 05:57] LABS: CALCIUM 8.8 mg/dL (8.5-10.1); PHOSPHOROUS 8.1 mg/dL (2.5-4.9)
[2017-05-27 06:15] LABS: CARBON DIOXIDE 25.8 mmol/L (21.0-32.0); POTASSIUM - SERUM 3.8 mmol/L (3.5-5.1)
--- NOTE | 2017-05-27 07:15 | NUR ---
RECIEVED REPORT ON PATIENT, PATIENT IS ALERT AND ORIENTED AT THIS TIME. PATIENT HAS A L HAND IV THAT IS SL AT THIS TIME. PATIENT IS SR ON MONITOR WITH A RATE OF 72. PATIENT IS AT BEDSIDE. PATIENT DENIES ANY NEEDS AT THIS TIME. WILL CONT TO MONITOR PATIENT. CPOC
--- NOTE | 2017-05-27 09:00 | NUR ---
MORNING MEDICATIONS GIVEN WITH NO ISSUES, FIORCET GIVEN FOR HEADACHE. WILL CONT TO MONITOR. CPOC
[2017-05-27 10:22] VITALS: BP 191/85
--- NOTE | 2017-05-27 11:30 | NUR ---
HYDRALIZINE GIVEN FOR HTN, WILL MONITOR. CPOC
--- NOTE | 2017-05-27 12:00 | NUR ---
PATIENT SITTING UP IN BED EATING LUNCH AT THIS TIME. DENIES ANY FURTHER NEEDS, CPOC
[2017-05-27 12:08] VITALS: BP 175/76
--- NOTE | 2017-05-27 14:02 | NUR ---
PATIENT TAKING SHOWER AT THIS TIME. CPOC
[2017-05-27 15:26] VITALS: BP 167/69
--- NOTE | 2017-05-27 15:37 | NUR ---
HYDRALIZINE GIVEN FOR HTN, WILL MONITOR. CPOC
--- NOTE | 2017-05-27 16:32 | NUR ---
BP RECHECKED, 153/66. CPOC
--- NOTE | 2017-05-27 18:30 | NUR ---
ROUNDS MADE, PATIENT DENIES ANY NEEDS. CPOC
--- NOTE | 2017-05-27 18:35 | NUR ---
FIORCET GIVEN FOR HEADACHE, 10/02. CPOC
--- NOTE | 2017-05-27 19:38 | NUR ---
PT RESTING IN BED. STATES HIS HEADACHE PAIN IS ABOUT A 1 OR 2 AND WANTS A TYLENOL. IS AAO AND DENIES ANY OTHER NEEDS AT THIS TIME. WILL CPOC
[2017-05-27 20:00] VITALS: BP 152/62
--- NOTE | 2017-05-27 20:28 | NUR ---
PT STATES 2/10 FOR A HEADACHE. DENIES ANY NEEDS OR COMPLAINS. STATES EVERYONE HAS BEEN TAKEN GOOD CARE OF HIM. PT DENIES AN ICEPACK STATES HEADACHE IS NOT THAT BAD. NO S/S OF DISTRESS. WILL CPOC
[2017-05-28] VITALS: BP 175/82
--- NOTE | 2017-05-28 03:31 | NUR ---
PT ASLEEP. RESPIRATIONS EVEN AND UNLABORED. NO S/S OF DISTRESS. PT AROUSES TO VERBAL STIMULI. DENIES ANY NEEDS. BED LOW AND CALL LIGHT IN REACH. WILL CPOC
[2017-05-28 04:00] VITALS: BP 198/90
--- NOTE | 2017-05-28 05:54 | NUR ---
PT BP 198/90 APRESOLINE 20MG GIVEN TO RIGHT HAND IV. PT SHOWS CONCERN ABOUT HIS DIALYSIS ACCESS DECISIONS, PD VERSES FISTULA. PT ALSO UNAWARE OF DIET CHANGES. WILL PRINT PT EDUCATION R/T DIET RESTRICTIONS. PT DENIES ANY OTHER NEEDS AT THIS TIME. NO S/S OF DISTRESS. WILL CPOC
[2017-05-28 07:20] LABS: BASOPHILS 0.6 % (0-2); EOSINOPHILS 8.3 % (0-7); HEMATOCRIT 31.6 % (42.0-54.0); HEMOGLOBIN 10.2 g/dL (13.5-17.5); IMMATURE GRANULOCYTES 0.4 % (0-5); LYMPHOCYTES 25.3 % (15-50); MCH 30.2 pg (26.0-34.0); MCHC 32.3 g/dL (31.0-37.0); MCV 93.5 fL (80.0-100.0); MEAN PLATELET VOLUME 9.6 fL (7.4-10.4); MONOCYTES 9.3 % (2-11); NEUTROPHILS 56.1 % (40-80); PLATELET COUNT 232 10x3/uL (130-400); RBC 3.38 10x6/uL (4.20-6.10); RDW 14.7 % (11.5-14.5); WBC 7.2 10x3/uL (4.8-10.8)
[2017-05-28 07:40] LABS: ANION GAP 17.1 mmol/L (8-16); CARBON DIOXIDE 24.7 mmol/L (21.0-32.0); CREATININE - SERUM 9.4 mg/dL (0.6-1.3); POTASSIUM - SERUM 3.8 mmol/L (3.5-5.1)
[2017-05-28 08:00] VITALS: BP 209/96
--- NOTE | 2017-05-28 10:04 | OP ---
PATIENT NAME: VAMSI MARTINEZ MEDICAL RECORD: [id number] :52 LOCATION:D. D.2137 ADMISSION DATE:05/20/17 SURGEON: LYUDMILA DOMINGUEZ MD DATE OF OPERATION: 05/25/2017 PREOPERATIVE DIAGNOSES: 1. Acute renal failure. 2. Anemia. POSTOPERATIVE DIAGNOSES: 1. Acute renal failure. 2. Anemia. PROCEDURE: 1. Insertion of right 19-cm internal jugular HemoSplit catheter (tunneled cuffed dual-lumen hemodialysis catheter) under fluoroscopic guidance. 2. Immediate surgeon interpretation of the fluoroscopic images. SURGEON: Lyudmila Dominguez MD PEWTER CASTER: None. BLOOD LOSS: Minimal. ANESTHESIA: Straight local. COMPLICATIONS: None. The risks, possible complications, and alternatives to the procedure were explained to the patient. He elects to proceed. I saw the patient preoperatively in the holding area. The patient ate a full breakfast this morning. For that reason, he is being done under straight local. No radiologist was present for this procedure. Static fluoroscopic images were obtained and are kept in the PACS system. The surgeon interpretation of the radiographic images is dictated within the body of this operative note. OPERATIVE COURSE: The patient was conveyed to the operating room electively on 05/25/2017. The right neck and right chest were sterilely prepped and draped. A local anesthetic was used to infiltrate the skin and subcutaneous tissues inferior and superior to the clavicle as well as at the base of the right neck. Under ultrasonographic guidance, I percutaneously accessed the right internal jugular vein. Guidewire passed easily. A small skin chung was accomplished. A vessel dilator was used to dilate a subcutaneous tract. I tunneled a 19-cm HemoSplit catheter from an incision in the right chest to the neck incision. A dilator sheath was then advanced over the wire. The dilator and wire were removed. The tips of the HemoSplit catheter were advanced down through the sheath. The Peel-Away sheath was then removed. I then pulled back on the HemoSplit catheter to seat the cuff in the subcutaneous tissues. Radiographic images were obtained. There was no evidence of kinking or twisting of the HemoSplit catheter. No radiographic evidence of complication. The neck incision was closed with interrupted 3-0 Vicryl sutures. The hub of the HemoSplit catheter was sutured to the underlying skin with 2-0 nylons. Both lumens flushed easily and aspirated dark, nonpulsatile blood. OPERATIVE REPORT [id number] VAMSI MARTINEZ I then flushed both lumens and the HemoSplit catheter with the appropriate amount of concentrated heparin. Sterile dressings were applied. The patient was then conveyed to the postanesthesia care unit. A chest x-ray is pending. TRANSINT:[id number] Voice Confirmation ID: [id number] DOCUMENT ID: [id number] LYUDMILA DOMINGUEZ MD at 1004 CC: MARY GIBBONS MD and WALLACE RICK MD [id number] DICTATION DATE: 05/25/17 1443 WELDING PRODUCTION SUPERVISOR: 05/25/17 1525 ADM IN [facility] [address] [place] [address]
--- NOTE | 2017-05-28 10:21 | NUR ---
AM ROUNDS COMPLETED. INTRODUCED MYSELF TO PT PRIMARY RN FOR TODAYS SHIFT. RR NONLABORED, NO CURRENT NEEDS AT THIS TIME, WILL CHECK ORDERS AND CONTINUE WITH TODAYS PLAN OF CARE.
--- NOTE | 2017-05-28 11:00 | NUR ---
PT LEAVING UNIT FOR DIALYSIS. WILL CTM.
--- NOTE | 2017-05-28 13:04 | NUR ---
PT IN DIALYSIS AND DOING WELL PER DIALYSIS NURSE. NO CURRENT NEEDS. WILL CPOC.
--- NOTE | 2017-05-28 13:17 | NUR ---
Nutrition Consult: Consult received for renal diet edu. Spoke with pt regarding low K+, Phos, Na intake; moderate to high protein intake. Answered questions. Written info was provided to pt. Pt stated that he intended to do everything he could to be compliant and feel better. Pt and encouraged to contact RD with any questions/concerns. Thank you for the consult.
--- NOTE | 2017-05-28 15:14 | NUR ---
PT BACK FROM DIALYSIS. STILL AWAITING TO FIND OUT IF HE CAN BE DISCHARGED OR NOT. PT VERY ANXIOUS AND HOPES TO. NO CURRENT NEEDS. WILL CPOC.
--- NOTE | 2017-05-28 15:18 | NUR ---
CALLED FOR DISCHARGE ORDERS AND WILL ENTER NOW.
[2017-05-28] MEDS ORDERED: COZAAR100 MG PO (15:21)
[2017-05-28] MEDS ORDERED: CATAPRES0.1 MG PO (15:21)
[2017-05-28] MEDS ORDERED: CARDIZEM LA240 MG PO (15:21)
[2017-05-28] MEDS ORDERED: HYDRALAZINE HCL50 MG PO (15:22)
--- NOTE | 2017-05-28 16:33 | NUR ---
D/C PTS L.HAND PIV WITH CATHETER TIP FULLY INTACT. CALLED IN PTS NEW MEDICATIONS TO [facility] [phone] [facility]. RETURNED TELEMETRY AND PT NOW WAITING ON DISCHARGE PAPERS.
--- NOTE | 2017-05-28 16:59 | NUR ---
Patient Name: VAMSI MARTINEZ Encounter No: [id number] : 1950 Primary Insurance: [id number] Anticipated DC Date: 05-28-2017 Planned Disposition: Home External Planned Provider: : REZA follow-up note: CM SPOKE TO BEDSIDE NURSE WHO NOTIFIED OF PT'S DISCHARGE TODAY. CM SPOKE TO EBONIE GRAHAM OF [facility], SHE HAS COMPLETED OUTPATIENT CLINIC ARRANGEMENTS AND WILL FAX WELCOME LETTER TO PT TO PROVIDE TO HIM. SHE HAS EXPLAINED THIS TO PT. CM MET WITH PT AND SPOUSE IN ROOM TO DISCUSS DISCHARGE NEEDS AND PLANNING. CM PROVIDED WELCOME LETTER FOR [facility], [facility]TS, 1200 NOON SCHEDULE, FIRST APPOINTMENT IS 06-01-17 AT 1130AM. PT REPORTS UNDERSTANDING, PT'S SPOUSE REPORTS SHE HAS DISCUSSED THIS WITH EBONIE OF [facility]. CM DISCUSSED AVAILABILITY OF HOME HEALTH, REHAB SERVICES AND MEDICAL EQUIPMENT. PT DENIES DISCHARGE NEEDS. SPOUSE TO TRANSPORT HOME AT DISCHARGE. IMPORTANT MESSAGE FROM MEDICARE PROVIDED AND EXPLAINED. COPY OF WELCOME LETTER PLACED IN HARD COPY CHART. BEDSIDE NURSE AND DR. RCIK NOTIFIED. Da De La Fuente, CASE MANAGEMENT
--- NOTE | 2017-05-28 17:00 | NUR ---
DISCHARGE PAPERS SIGNED AND TEACHING COMPLETED. PT READY TO BE DISCHARGED. NO FURTHER NEEDS.
--- NOTE | 2017-06-11 14:14 | EC ---
PATIENT:VASMI MARTINEZ DATE OF SERVICE: 05/20/17 SEX: M MEDICAL RECORD: [id number] DATE OF : [birth year] LOCATION:D.M2 D.213 AGE OF PATIENT: 67 ADMISSION DATE: 05/20/17 REFERRING PHYSICIAN: INTERPRETING PHYSICIAN: CHIVO PAEZ MD ECHOCARDIOGRAM REPORT ECHO CHARGES 4 ECHO COMPLETE CLINICAL DIAGNOSIS: AFIB HX OF HTN ECHOCARDIOGRAPHIC MEASUREMENTS (adult normal given) AC root (d.<3.7cm) 3.6 cm LV Septum d (<1.2 cm> 1.7 cm Valve Excursion 2.1 cm LV Septum (systole) 1.9 cm Left Atria (s.<4.0cm> 5.1 cm LVPW d(<1.2cm) 1.9 cm RV (d.<2.3cm) 5.0 cm LVPW (sytole) 2.2 cm LV diastole(<5.6CM) 5.7 cm MV E-F(>70mm/sec) cm LV systole 3.6 cm LVOT Diameter 2.0 cm MV exc.(>10mm) 2.4 cm Est.ejection fraction (50-75%) % Pericardial Effusion Y DOPPLER: LVIT cm/sec A 73.0 cm/sec E 94.0 cm/sec LA cm/sec RVSP 33 mmHg LVOT 106 cm/sec AOP1/2T m/s Asc. Ao 171 cm/sec RVOT 97 cm/sec RA cm/sec PA 139 cm/sec AV Gradient Peak 11.65mmHg AV Mean 6.33 mmHg AV Area 2.0 cm MV Gradient Peak 6.02 mmHg MV Mean 2.14 mmHg MV Area cm COMMENTS: Wood Barker: [address] Insurance Billing Clerk: 1 Dr. Paez TAPE# PACS DATE OF SERVICE: 05/23/2017 PROCEDURE: Echocardiogram FINDINGS: 1. Left ventricular chamber size is within normal limits. Left ventricular systolic function is normal. Overall ejection fraction estimated at 60%. 2. Left atrium is enlarged at 5.1 cm. Right atrium and right ventricular chamber sizes are as well moderately dilated. 3. Valvular structures have normal structure and motion. ECHOCARDIOGRAM REPORT [id number] VAMSI MARTINEZ 4. Doppler interrogation reveals mild aortic insufficiency, [id number] mitral regurgitation, mild tricuspid regurgitation, no other valvular insufficiency or stenosis. Pulmonary systolic pressure is estimated at 33 mmHg. 5. No evidence of pericardial effusion or left ventricular thrombus. TRANSINT:[id number] Voice Confirmation ID: [id number] DOCUMENT ID: [id number] 05/26/2017 Edited to correct date of service, [email or web address]. CHIVO PAEZ MD at 1414 CC: [id number] DICTATION DATE: 05/24/17 1239 MEAL TEMPERER: 05/24/17 1410 DIS IN 05/28/[address] [address]
== END 2017-05-28 17:35 | disposition home or self-care (01) | DRG 682 ==
LOC: D.ER 16:44 → D.M2 21:53 → D.SDCHOLD 05-24 16:00 → D.M2 05-24 16:02
PROVIDERS: Emergency Medicine; Internal Medicine Nephrology; Physician Assistant; ADMIT Family Medicine
PROC: 0T9B70Z Drainage of Bladder with Drainage Device, Via Natural or Artificial Opening (ICD-10-PCS; principal; 2017-05-21)
PROC: 0TB03ZX Excision of Right Kidney, Percutaneous Approach, Diagnostic (ICD-10-PCS; 2017-05-24)
PROC: 02HV33Z Insertion of Infusion Device into Superior Vena Cava, Percutaneous Approach (ICD-10-PCS; 2017-05-25)
PROC: B5181ZA Fluoroscopy of Superior Vena Cava using Low Osmolar Contrast, Guidance (ICD-10-PCS; 2017-05-25)
DX: N17.9 Acute kidney failure, unspecified (principal); I50.31 Acute diastolic (congestive) heart failure; I13.2 Hypertensive heart and chronic kidney disease with heart failure and with stage 5 chronic kidney disease, or end stage renal disease; N13.8 Other obstructive and reflux uropathy; N28.1 Cyst of kidney, acquired; N18.6 End stage renal disease; D63.1 Anemia in chronic kidney disease; E03.9 Hypothyroidism, unspecified; I48.0 Paroxysmal atrial fibrillation; M17.0 Bilateral primary osteoarthritis of knee; K21.9 Gastro-esophageal reflux disease without esophagitis; N40.1 Benign prostatic hyperplasia with lower urinary tract symptoms; R51 Headache

== ENCOUNTER 2017-07-16 06:27 | Day surgery (SDC) | payer MEDICARE ==
[~2017-07-16] VITALS: Ht 180.3 cm; Wt 81.6 kg
[~2017-07-16 06:27] MED LIST: CALAN SR240 MG PO; CARDIZEM LA240 MG PO; CATAPRES0.1 MG PO; COZAAR100 MG PO; HYDRALAZINE HCL50 MG PO
[2017-07-16 07:02] LABS: BASOPHILS 0.6 % (0-2); EOSINOPHILS 3.4 % (0-7); HEMATOCRIT 34.5 % (42.0-54.0); HEMOGLOBIN 11.3 g/dL (13.5-17.5); IMMATURE GRANULOCYTES 0.2 % (0-5); LYMPHOCYTES 17.5 % (15-50); MCH 30.9 pg (26.0-34.0); MCHC 32.8 g/dL (31.0-37.0); MCV 94.3 fL (80.0-100.0); MEAN PLATELET VOLUME 8.5 fL (7.4-10.4); MONOCYTES 9.7 % (2-11); NEUTROPHILS 68.6 % (40-80); RBC 3.66 10x6/uL (4.20-6.10); RDW 16.2 % (11.5-14.5); WBC 8.2 10x3/uL (4.8-10.8)
[2017-07-16 07:07] LABS: PLATELET COUNT 171 10x3/uL (130-400)
[2017-07-16 07:22] LABS: CALCIUM 9.1 mg/dL (8.5-10.1); CARBON DIOXIDE 26.6 mmol/L (21.0-32.0); CREATININE - SERUM 7.1 mg/dL (0.6-1.3); POTASSIUM - SERUM 4.6 mmol/L (3.5-5.1)
[2017-07-16 07:25] LABS: APTT 29.8 SECONDS (22.8-39.4); INR 0.98 (0.85-1.17); PROTIME 12.6 SECONDS (11.6-15.0)
[2017-07-16 08:51] VITALS: Ht 180.3 cm; Wt 81.6 kg
--- NOTE | 2017-07-16 11:34 | NUR ---
FARHANA R/T ANESTHESIA BLOCK, SEE ANESTHESIA NOTES
--- NOTE | 2017-07-16 12:28 | NUR ---
CONSULTED ANESESIA ABOUT HYPOTENSION . V.O OF 1ML OF ROBINAL NOW. V.O.R.B CORRECT
--- NOTE | 2017-07-16 12:30 | NUR ---
OPA OUT AT THIS TIME
--- NOTE | 2017-07-16 13:31 | NUR ---
1250 BACK FROM AV FISTULA LEFT WRIST. DRESSING INTACT SCANT AMT OG BLOOD ON DRESSING. ARM PUT IN SLING FINGERS NUMB FROM BLOCK.
--- NOTE | 2017-08-06 15:11 | OP ---
PATIENT NAME: SHOAIB MARTINEZ MEDICAL RECORD: [id number] :[birth year] LOCATION:D[facility]aOPS ADMISSION DATE: SURGEON: CAMPOS RIZVI MD DATE OF OPERATION: 07/16/2017 DATE OF OPERATION: 07/16/2017 REFERRED BY: Dr. Jordan and Dr. Kim. PREOPERATIVE DIAGNOSIS: End-stage renal disease. POSTOPERATIVE DIAGNOSIS: End-stage renal disease. OPERATION PERFORMED: Creation of the left wrist Harmony brachiocephalic arteriovenous fistula. SURGEON: Campos Rizvi M.D. ANESTHESIA: Regional nerve block and general with LMA per DOUGLAS and Dr. Montalvo. PREOPERATIVE NOTE: Mr. Martinez is a very nice 67-year-old white male with end-stage renal disease on dialysis who requires long-term access. He has nice sized veins on physical examination and he is brought to the operating at this time with plans to create a left Harmony wrist fistula. Under anesthesia, the patient was prepped and draped in sterile manner. Excellent renal dilatation was resulted from his nerve block. I did examine him with duplex ultrasound after applying nitroglycerin topically and using a [place] drain as a proximal venous tourniquet. The cephalic vein from the base of the thumb proximally all looked great. The radial artery was nice and large without signs of atherosclerosis. I made a longitudinal incision and exposed the cephalic vein and radial artery. Tributaries were divided between clips and Vicryl ligatures or divided and coagulated with electrocautery. The vein distally was clipped and then transected and bevelled. It was flushed with heparinized saline and dilated hydrostatically. The artery was then occluded with Silastic loops. It was opened and flushed proximally and distally with heparinized saline and an end-to-side end of vein to side of artery anastomosis was then performed approximately 6 mm in length and done with 7-0 running Prolene suture. When completed and the occluding loops were released, excellent flow developed immediately within the fistula. The suture line was hemostatic. Hemostasis was achieved with some additional use of electrocautery and a bit of fibrillar. The wound was closed with interrupted inverted 3-0 Vicryl and running intracuticular 4-0 Monocryl and Dermabond glue. It was dressed with Maxorb Ag, Tegaderm and Cavilon skin prep. Doppler examination confirmed excellent continuous pulsatile flow in the fistula. All sponges, instruments and needles were accounted for. No drain was used. No surgical specimen was submitted for histopathology. Blood loss was insignificant and unreplaced. PLAN: For the patient to go home today. He is given a prescription for 20 Drury 5/325. He will come back to see me after the 26 of July in my office. He will continue all of his home medications and diet and activities. TRANSINT:[id number] Voice Confirmation ID: [id number] DOCUMENT ID: [id number] OPERATIVE REPORT [id number] SHOAIB MARTINEZ JAMES MD at 1511 CC: JOE KIM MD and LYUDMILA JORDAN MD [id number] DICTATION DATE: 07/16/17 122 BARIATRIC PROGRAM COORDINATOR: 07/16/17 1332 [facility] 07/16/17 [facility] [address] [place] [address]
== END 2017-07-16 14:15 | disposition home or self-care (01) ==
LOC: D.OPS 06:27
PROVIDERS: Internal Medicine Nephrology
DX: I12.0 Hypertensive chronic kidney disease with stage 5 chronic kidney disease or end stage renal disease (principal); N18.6 End stage renal disease; Z99.2 Dependence on renal dialysis; Z01.812 Encounter for preprocedural laboratory examination

== ENCOUNTER → 2018-11-24 08:29 | Outpatient (CLI) | payer MEDICARE ==
[2017-07-16 08:51] VITALS: BMI 25.1
--- NOTE | ~2018-11-24 | EC ---
PATIENT:SHOAIB MRATINEZ DATE OF SERVICE: 11/24/18 SEX: M MEDICAL RECORD: [id number] DATE OF : [birth year] LOCATION:D.[facility] AGE OF PATIENT: 68 ADMISSION DATE: 11/24/18 REFERRING PHYSICIAN: INTERPRETING PHYSICIAN: CHIVO PAEZ MD ECHOCARDIOGRAM REPORT ECHO CHARGES 4 ECHO COMPLETE Date: 11/24/18 CLINICAL DIAGNOSIS: DYSPNEA/HYPOTENSION ECHOCARDIOGRAPHIC MEASUREMENTS (adult normal given) AC root (d.<3.7cm) 3.6 cm LV Septum d (<1.2 cm> 1.4 cm Valve Excursion 2.0 cm LV Septum (systole) 1.7 cm Left Atria (s.<4.0cm> 4.2 cm LVPW d(<1.2cm) 1.7 cm RV (d.<2.3cm) 4.7 cm LVPW (sytole) 1.9 cm LV diastole(<5.6CM) 4.4 cm MV E-F(>70mm/sec) cm LV systole 2.4 cm LVOT Diameter 2.0 cm MV exc.(>10mm) 1.6 cm Est.ejection fraction (50-75%) % DOPPLER: LVIT cm/sec A 72.0 cm/sec E 66.0 cm/sec LA cm/sec RVSP 41 mmHg LVOT 157 cm/sec AOP1/2T m/s Asc. Ao 189 cm/sec RVOT 101 cm/sec RA cm/sec PA 127 cm/sec AV Gradient Peak 14.22mmHg AV Mean 7.67 mmHg AV Area 2.1 cm MV Gradient Peak 3.36 mmHg MV Mean 1.73 mmHg MV Area cm COMMENTS: [employer] Van Truck Driver: [address] Negotiator: 1 Dr. Paez TAPE# PACS Pericardial Effusion N DATE OF SERVICE: 11/24/2018 DATE OF SERVICE: 11/24/2018 FINDINGS: 1. Left ventricular chamber size is within normal limits. Left ventricular systolic function is normal. Overall ejection fraction estimated at 60%. 2. Left atrium, right atrium, and right ventricle chamber sizes are within normal limits. 3. Valvular structures have normal structure and motion. ECHOCARDIOGRAM REPORT [id number] SHOAIB MARTINEZ 4. Doppler interrogation reveals mild mitral regurgitation, mild tricuspid regurgitation, no other valvular insufficiency or stenosis. Pulmonary systolic pressure is estimated at 41 mmHg. 5. No evidence of pericardial effusion or left ventricular thrombus. TRANSINT:[id number] Voice Confirmation ID: [id number] DOCUMENT ID: [id number] CHIVO PAEZ MD CC: [id number] DICTATION DATE: 11/24/18 161 HOUSING MANAGEMENT OFFICER: 11/24/18 1627 [facility] [address] [place] [address]
== END | disposition home or self-care (01) ==
LOC: D.ECHO 08:29
PROVIDERS: ATTEND Internal Medicine Nephrology
DX: R06.00 Dyspnea, unspecified (principal); I95.9 Hypotension, unspecified

== ENCOUNTER 2019-12-26 06:57 | Day surgery (SDC) | payer MEDICARE ==
[~2019-12-26] VITALS: Ht 180.3 cm; Wt 90.7 kg
[2019-12-26] MEDS ORDERED: RENVELA800 MG PO (08:01)
[2019-12-26] MEDS ORDERED: SENSIPAR30 MG PO (08:05)
[2019-12-28 15:42] VITALS: Ht 180.3 cm; Wt 90.7 kg
== END 2019-12-26 15:03 | disposition home or self-care (01) ==
LOC: D.OPS 06:57
PROVIDERS: ATTEND Internal Medicine Nephrology
DX: I12.9 Hypertensive chronic kidney disease with stage 1 through stage 4 chronic kidney disease, or unspecified chronic kidney disease (principal); N18.6 End stage renal disease; Z99.2 Dependence on renal dialysis; T82.868A Thrombosis due to vascular prosthetic devices, implants and grafts, initial encounter; I48.0 Paroxysmal atrial fibrillation

== ENCOUNTER 2020-01-30 06:37 | Day surgery (SDC) | payer MEDICARE ==
[~2020-01-30] VITALS: Ht 180.3 cm; Wt 88.5 kg
[~2020-01-30 06:37] MED LIST changes: +RENVELA800 MG PO; +SENSIPAR30 MG PO
[2020-01-30 07:17] LABS: ANION GAP 17.1 mmol/L (8-16); BASOPHILS 0.5 % (0-2); CALCIUM 9.1 mg/dL (8.5-10.1); CARBON DIOXIDE 24.7 mmol/L (21.0-32.0); CREATININE - SERUM 10.9 mg/dL (0.6-1.3); HEMATOCRIT 36.7 % (42.0-54.0); HEMOGLOBIN 11.8 g/dL (13.5-17.5); IMMATURE GRANULOCYTES 0.2 % (0-5); LYMPHOCYTES 17.5 % (15-50); MCH 31.9 pg (26.0-34.0); MCHC 32.2 g/dL (31.0-37.0); MCV 99.2 fL (80.0-100.0); MEAN PLATELET VOLUME 9.6 fL (7.4-10.4); MONOCYTES 8.1 % (2-11); NEUTROPHILS 70.7 % (40-80); PLATELET COUNT 205 10x3/uL (130-400); POTASSIUM - SERUM 4.8 mmol/L (3.5-5.1); RDW 16.1 % (11.5-14.5); WBC 6.3 10x3/uL (4.8-10.8)
[2020-01-30 07:28] LABS: INR 0.84 (0.85-1.17); PROTIME 11.5 SECONDS (11.6-15.0)
[2020-01-30] MEDS ORDERED: SYNTHROID50 MCG PO (08:20)
[2020-01-30] MEDS ORDERED: RENA-VITE TABL0.8 MG PO (08:21)
[2020-01-30] MEDS ORDERED: SLOW RELEASE I160 MG PO (08:21)
[2020-01-30 08:25] VITALS: Ht 180.3 cm; Wt 88.5 kg
--- NOTE | 2020-01-30 09:48 | NUR ---
0945 BLOCK COMPLETED, VERBALLY RESPONSIVE, AT SIDE, DENIES PROBLEMS. PULSE OX 100% O2 2L. 18 RR 94HR CALL LIGHT AT SIDE.
--- NOTE | 2020-01-30 10:25 | NUR ---
1015 PT WITH SLEEP APNEA ALARM, QUICKLY AROUSES WHEN SPOKEN TO AND ALARM STOPS. PT. DOSING AT INTERVALS.
--- NOTE | 2020-01-30 10:31 | NUR ---
1030 PT AWAKE, TALKING TO , NO SLEEP APNEA PAST 15 MINUTES, STATES BLOCK IS PROGRESSING AND FEELING HEAVIER.
--- NOTE | 2020-01-30 10:50 | NUR ---
1045 PT FELL ASLEEP, SLEEP APNEA NOTED, AROUSED EASILY, MONITORING CONTINUING
--- NOTE | 2020-01-30 11:02 | NUR ---
1100 DROWSY, WIGGLES DIGITS, AT SIDE.
--- NOTE | 2020-02-01 16:49 | OP ---
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 ANESTHESIA: Regional nerve block plus local 1% lidocaine without epinephrine and 0.25% Marcaine with epinephrine and TIVA with IV propofol per [facility]. PREOPERATIVE NOTE: This gentleman has a large left radiocephalic AV fistula and does home hemodialysis. He has had some problems with venous outflow from this fistula and is now having difficulties with high venous pressures on dialysis. On my physical examination and review of the previous outpatient fistulograms at [facility], I found it difficult to understand exactly what was causing the problem, but have I scheduled the patient to come in today for yet another fistulogram and likely revision or replacement with a prosthetic graft in the forearm. He has a right internal jugular tunneled dialysis catheter, which has been inserted through quite a long subcutaneous tunnel lateral entry site on the chest. I replaced it just a week or two ago for poor function and once again it is not functioning well and it is believed to be infected. He was started yesterday on cephalosporin antibiotics by mouth and given initial IV dose of vancomycin. He was already scheduled for his operation on the arm today and will have the catheter removed and replaced today as well. The patient was placed in supine position, prepped and draped in a sterile manner and the fistula was accessed near the arterial anastomosis with micropuncture technique and contrast injections performed to complete a standard fistulogram to the right atrium. I found areas of tortuosity and mild stenosis of the runoff from the radiocephalic fistula at the wrist with an area of irregularity and stenosis at the mid forearm level, which was most likely the problem. The entire vein from arteriovenous anastomosis to the antecubital space was dilated with a 10-mm angioplasty balloon. There was some minimal extravasation proximally but this was controlled with a brief period of balloon inflation and tamponade. The fistula, when this was completed, had an excellent thrill pulsation in the bruit. I did note on the fistulogram that the venous runoff is predominantly via the basilic vein and that the cephalic vein much above the antecubital space is nonexistent. There is also a large portion of the venous runoff from the fistula going to the track template maker vein and then to the brachial veins. Hemostasis was obtained with a pursestring 4-0 Prolene suture in standard dressing. Doppler examination was excellent. I believe the patient should be able to use this fistula without having to have a graft or other major revision. The patient was then reprepped and redraped. I examined the patient's [facility] entry OPERATIVE REPORT [id number] SHOAIB MARTINEZ and cultured some clear nehal fluid for aerobic and anaerobic organisms as well as a stat Gram stain. I advanced a guidewire through the catheter, but was unable to get the guidewire to direct down into the inferior vena cava and so with it in the right atrium, went ahead and removed the old catheter and the old catheter tip was sent for culture. During all of this process, the patient's wire was lost from the tract and it proved subsequently impossible to place a new catheter over a guidewire through the same tract. I did several contrast injections and noted that the existing tract in the internal jugular vein was very small and indeed with the type of catheter that I had available in the present situation, I was unable to insert a new catheter there. I reexamined the arm and thought that it is likely that the patient can have dialysis tomorrow and ongoing after that using his fistula and I decided not to try to place a new tunneled catheter in another location. Sterile dressing was applied and the patient was subsequently awakened and taken to the recovery room in stable condition. Blood loss was about 5 cc unreplaced. Sponges, instruments, and needles were accounted for. No drain was used and no surgical specimen was submitted for histopathology. Specimens consisted of the swabs for aerobic and anaerobic culture and sensitivity and Gram stain and the catheter tip sent for culture. PLAN: The patient will go home today and I have spoken with the nurses of the dialysis center and they will expect him back with a chair time of 10:45 tomorrow a.m. at [facility]. I have also spoken with Jenny in the home dialysis nurses segment at [facility] and they will be in attendance when he comes in, I believe that he should be able to dialyze with his fistula, although I thought perhaps change in technique or different puncture sites or possibly with the use of shorter needles, might cause less difficulty. I will be seeing him back as a p.r.n. If necessary, we can certainly place another catheter probably at [facility] and if we absolutely must, his present fistula could be replaced with an arm graft between the radial artery and the proximal venous runoff below the antecubital space or we might fashion an entirely new left brachial artery to translocated basilic vein arteriovenous fistula. This will of course require keeping a bridging catheter for longer period of time. Blood loss was about 5 cc unreplaced. Sponges, instruments, and needles were accounted for. No surgical specimen was submitted for histopathology. TRANSINT:[id number] Voice Confirmation ID: [id number] DOCUMENT ID: [id number] cc: [facility] CAMPOS RIZVI MD at 1649 CC: JERALD BAÑUELOS RN and JOE KIM MD [id number] DICTATION DATE: 01/30/20 1431 ANTENNA ENGINEER: 01/30/20 2354 [facility] 01/30/20 [facility] [address] [place] [address]
== END 2020-01-30 14:45 | disposition home or self-care (01) ==
LOC: D.OPS 06:37
PROVIDERS: Surgery; ATTEND Internal Medicine Nephrology
DX: T82.510A Breakdown (mechanical) of surgically created arteriovenous fistula, initial encounter (principal); N18.6 End stage renal disease; Z99.2 Dependence on renal dialysis